=== PATIENT | female | born 1985 | race Caucasian/White ===

== ENCOUNTER 2018-06-06 10:55 | Emergency (ER) | payer OTHER ==
--- NOTE | 2018-06-06 11:07 | ED Physician Documentation ---
General Adult - HISTORIAN Historian: patient - HPI Stated Complaint: jaw pain and low back pain after work accident Chief Complaint: Low Back Pain/ Injury Onset: days ago (4) Timing: still present Severity: moderate Further Comments: yes (She states she had a resident at work that when she tried to assist him up he accidently hit her in the right jaw and she had mild pain intially and now cannot open her jaw without pain. She also states after this lifting incident she has had low back pain since. No loss of control of bowel or bladder . She states she did not take any OTC meds today) - ROS CONST: no problems EYES/ENT: none CVS/RESP: none GI/: none MS/SKIN/LYMPH: other (neck pain ) NEURO/PSYCH: denies: headache - PAST HX Past History: none Other History: none Surgeries/Procedures: none Immunizations: UTD Allergies/Adverse Reactions: Allergies Allergy/AdvReac Type Severity Reaction Status Date / Time No Known Drug Allergies Allergy Verified 06/06/18 11:30 - SOCIAL HX Smoking History: non-smoker Alcohol Use: none Drug Use: none - FAMILY HX Family History: No - VITAL SIGNS Vital Signs: Vital Signs Temp Pulse Resp BP Pulse Ox 132/74 02/02/16 17:25 - REVIEWED ASSESSMENTS Nursing Assessment Reviewed: Yes Vitals Reviewed: Yes ED Results Lab/Radiology - Radiology Radiology Impressions: CT of the facial bones CLINICAL HISTORY: Work injury. Jaw pain. TECHNIQUE: CT of the facial bones is performed in contiguous axial slices with sagittal and coronal reconstructions. FINDINGS: The zygomatic arches and nasal bones are intact as is the anterior maxillary spine. Bony margins of the orbits are intact. The extraocular muscles and optic nerves are symmetric. The orbital fat is preserved. Nasal septum is in a midline position. Nasal airway passages are patent. Mandibular condyle is normally seated in the temporal fossa bilaterally. There is no evident fracture. IMPRESSION: Negative study. Electronically signed on Jun 06, 2018 12:43:37 PM CDT by: Corey Madrigal Five view lumbar spine CLINICAL HISTORY: Low back pain. FINDINGS: Complete examination lumbar spine including oblique and lateral coned-down views demonstrates the vertebrae to be anatomically aligned. The pedicles are intact and the paravertebral soft tissues are within normal limits. There is no evident fracture and no lytic or blastic lesion. IMPRESSION: Negative lumbar spine. Electronically signed on Jun 06, 2018 12:41:27 PM CDT by: Corey Madrigal General Adult Physical Exam - PHYSICAL EXAM GENERAL APPEARANCE: no distress EENT: eye inspection normal, no signs of dehydration, other (pain with attempt to open jaw on right side. No visable swelling or bruising. ) NECK: normal inspection RESPIRATORY: no resp distress, chest non-tender, breath sounds normal CVS: reg rate & rhythm, heart sounds normal, equal pulses, no murmur ABDOMEN: soft, normal bowel sounds BACK: normal inspection, other (low back pain (mid) pain with palpation. increased pain with bending and lifting. ) SKIN: warm/dry, normal color EXTREMITIES: non-tender, normal range of motion, no evidence of injury, no edema NEURO: oriented X3, CN's nml as tested Discharge Clincal Impression: Jaw pain Low back pain Qualifiers: Chronicity: acute Back pain laterality: bilateral Sciatica presence: without sciatica Qualified Code(s): M54.5 - Low back pain Referrals: Halima Mederos PA [Primary Care Provider] - 2 Days Additional Instructions: 1. Ibuprofen 800 mg Take 1 by mouth BID as needed for pain 2. Medrol Dose pack take as directed 3. Cyclobenzaprine 10 mg take 1 by mouth every 12 hours as needed for pain 4. Move jaw via exercises 5. See PCP on Friday if no improvement 6. return to er for any concerns Condition: Stable Disposition: 01 HOME, SELF-CARE Decision to Admit: NO Date of Decison to Admit: 06/06/18 Decision Time: 12:52
[2018-06-06 13:05] VITALS: BP 101/52
--- NOTE | 2018-06-06 15:15 | Diagnostic Imaging Report ---
TREY REID [facility] [address] [facility] [address] [place], [place]. [address] Report Submission Date: Jun 06, 2018 12:41:27 PM CDT Patient Study Name: SAM MUSTAFA Date: Jun 06, 2018 11:56:51 AM CDT Modality Type: DX Gender: F Description: SPINE : 85 Institution: [facility] Physician: TREY REID Five view lumbar spine CLINICAL HISTORY: Low back pain. FINDINGS: Complete examination lumbar spine including oblique and lateral coned-down views demonstrates the vertebrae to be anatomically aligned. The pedicles are intact and the paravertebral soft tissues are within normal limits. There is no evident fracture and no lytic or blastic lesion. IMPRESSION: Negative lumbar spine. Electronically signed on Jun 06, 2018 12:41:27 PM CDT by: Corey SANDY
--- NOTE | 2018-06-06 15:15 | Diagnostic Imaging Report ---
TREY REID [facility] [address] [facility] [address] [place], [place]. [address] Report Submission Date: Jun 06, 2018 12:43:37 PM CDT Patient Study Name: SAM MUSTAFA Date: Jun 06, 2018 11:50:19 AM CDT Modality Type: CT\SR Gender: F Description: CT MAXILLOFACIAL W/O D : 85 Institution: [facility] Physician: TREY REID CT of the facial bones CLINICAL HISTORY: Work injury. Jaw pain. TECHNIQUE: CT of the facial bones is performed in contiguous axial slices with sagittal and coronal reconstructions. FINDINGS: The zygomatic arches and nasal bones are intact as is the anterior maxillary spine. Bony margins of the orbits are intact. The extraocular muscles and optic nerves are symmetric. The orbital fat is preserved. Nasal septum is in a midline position. Nasal airway passages are patent. Mandibular condyle is normally seated in the temporal fossa bilaterally. There is no evident fracture. IMPRESSION: Negative study. Electronically signed on Jun 06, 2018 12:43:37 PM CDT by: Corey SANDY
== END 2018-06-06 12:56 | disposition home or self-care (01) ==
LOC: ED 10:55
DX: R68.84 Jaw pain (principal); M54.5 Low back pain
CPT/HCPCS: 70486; 72110; 81025; 99283

== ENCOUNTER 2019-02-02 10:45 | Outpatient (CLI) | payer OTHER ==
--- NOTE | 2019-02-02 11:10 | Diagnostic Imaging Report ---
JOSEPHINE OLIVA [facility] [address] [facility] [address] [place], [place]. [address] Report Submission Date: Feb 02, 2019 11:03:16 AM CDT Patient Study Name: SAM MUSTAFA Date: Feb 02, 2019 10:50:34 AM CDT Modality Type: DX Gender: F Description: FOOT 3 VIEWS OR MORE : 85 Institution: [facility] Physician: JOSEPHINE OLIVA EXAMINATION: FOOT 3 VIEWS OR MORE HISTORY: RIGHT 4TH AND 5TH TOE INJURY. PATIENT DENIES CHANCE OF . (Hx) COMPARISON: None FINDINGS: There is a mildly displaced fracture of the proximal shaft of the fourth proximal phalanx without intra-articular extension. No other acute fracture or dislocation is seen. The joint spaces are preserved. Bone density is normal. No soft tissue swelling is seen. IMPRESSION: Mildly displaced fourth proximal phalangeal fracture. Electronically signed on Feb 02, 2019 11:03:16 AM CDT by: Elan SANDY
== END 2019-02-02 13:34 ==
LOC: RAD 10:45
PROVIDERS: ATTEND Podiatrist Foot & Ankle Surgery
DX: S92.511A Displaced fracture of proximal phalanx of right lesser toe(s), initial encounter for closed fracture (principal); Y99.9 Unspecified external cause status; Y92.9 Unspecified place or not applicable
CPT/HCPCS: 73630